=== PATIENT | male | born 1970 | race Caucasian/White ===

== ENCOUNTER 2016-09-08 12:03 | Emergency (ER) | payer OTHER ==
[2016-09-08 12:14] VITALS: BP 146/103; PULSE 86; RESP 16; TEMP 98.1; O2SAT 96
[2016-09-08] MEDS ORDERED: TDAP ADULT 0.5 ML INJ (BOOSTRIX) IM ONE (12:28)
--- NOTE | 2016-09-08 12:39 | EDPHY ---
H & P Time Seen by Provider: 09/08/16 12:15 HPI/ROS: CHIEF COMPLAINT: left index finger splinter HISTORY OF PRESENT ILLNESS: A 45-year-old male presents emergency department with a large splinter in the tip of his left index finger. Patient was hammering a piece of wood at work today when he hammered a sliver into his finger. He is [id number], tetanus is not up-to-date, denies numbness or tingling in this finger. Smoking Status: Never smoked Physical Exam: GEN: Awake, alert, oriented, no acute distress RESP: nl resp effort MSK: Left index finger with sensation intact to light touch, cap refill less than 2 seconds SKIN: 5 mm wide by 2 mm deep by 20 mm long splinter of wood penetrating left index finger pad entrance wound on medial aspect of pad exit wound on lateral aspect of pad. Constitutional: Initial Vital Signs Temperature (C) 36.7 C 09/08/16 12:10 Heart Rate 86 09/08/16 12:10 Respiratory Rate 16 09/08/16 12:10 Blood Pressure 146/103 H 09/08/16 12:10 O2 Sat (%) 96 09/08/16 12:10 O2 Delivery Mode Room Air Allergies/Adverse Reactions: No Known Allergies Allergy (Unverified 09/08/16 12:14) Home Medications: Medication Instructions Recorded Cephalexin [Keflex] 500 mg PO TID 5 Days 09/08/16 MDM/Departure - MDM Diagnostics: Imaging Impressions Finger X-Ray 09/08/16 12:15 Impression: The wood fragment is noted although over the palmar portion of the distal aspect of the index finger, with no underlying osseous abnormality. Finger x-ray independently reviewed by me Procedures: Procedure: Foreign body removal Verbal consent was obtained from the patient. The left index finger was anesthetized using a digital block with 1% lidocaine without epinephrine. Foreign body was removed with manual traction. The wound was carefully irrigated by the emergency department hospital technician. The procedure was performed by myself. Tetanus and antibiotic status were addressed. Medications Given: Discontinued Medications Diphtheria/Tetanus/Acell Pertussis (Boostrix) 0.5 ml IM .ONCE ONE Stop: 09/08/16 12:29 Last Admin: 09/08/16 12:53 Dose: 0.5 ml - Depart Disposition: Home, Routine, Self-Care Clinical Impression: Foreign body of left index finger Condition: Good Instructions: Puncture Wound (ED), Soft Tissue Foreign Body (ED) Additional Instructions: Soak your index finger 4 times a day for 5-10 minutes in warm water. Take 500 mg of Keflex 3 times a day for 5 days. Follow up with the hand doctor as needed for symptoms that are not improving. Return to the emergency department for any signs of infection, increased pain, drainage from finger, fevers, any other questions or concerns. Prescriptions: Cephalexin [Keflex] 500 mg PO TID 5 Days Referrals: Dara Moss MD [Medical Doctor] - As per Instructions (Hand doctor on-call)
== END 2016-09-08 13:44 | disposition home or self-care (01) ==
PROC: 3E0234Z Introduction of Serum, Toxoid and Vaccine into Muscle, Percutaneous Approach (ICD-10-PCS; principal; 2016-09-08)
DX: S60.451A Superficial foreign body of left index finger, initial encounter (principal); Z23 Encounter for immunization; W45.8XXA Other foreign body or object entering through skin, initial encounter; Y92.69 Other specified industrial and construction area as the place of occurrence of the external cause; Y99.0 Civilian activity done for income or pay